=== PATIENT | female | born 1955 | race Caucasian/White ===

== ENCOUNTER 2020-12-06 13:46 | Outpatient (CLI) | payer MEDICARE, MEDICAID ==
[~2020-12-06 13:46] MED LIST: ALBU8HFA IH; APIX5TAB3 PO; ASPI-1071 PO; ATOR20TA66 PO; BUDE10.2 IH; BUPR-72 PO; COR3.125T PO; ESCI-8 PO; FURO20TA4 PO; LEVO112T5 PO; OMEP-50 PO; OXYB10TA30 PO; ZOLP10TA PO
== END 2020-12-06 23:59 | disposition home or self-care (01) ==
LOC: RAD 13:46
DX: K21.9 Gastro-esophageal reflux disease without esophagitis (principal); R13.14 Dysphagia, pharyngoesophageal phase; R49.0 Dysphonia
CPT/HCPCS: 74230

== ENCOUNTER 2020-12-10 15:20 | Emergency (ER) | payer MEDICARE, MEDICAID ==
[~2020-12-10] VITALS: Ht 167.6 cm; Wt 73.2 kg
[2020-12-10 16:07] LABS: BASOPHILS % (AUTO) 0.6 % (0-1); EOSINOPHILS # (AUTO) 0.1 X10'3 (0-0.9); EOSINOPHILS % (AUTO) 2.2 % (0-6); HEMATOCRIT 41.9 % (35.0-45.0); HEMOGLOBIN 13.7 g/dl (12.0-16.0); LYMPHOCYTES % (AUTO) 42.9 % (21-51); MEAN CORPUSCULAR HEMOGLOBIN 31.6 PG (27.0-31.0); MEAN CORPUSCULAR HGB CONC 32.8 g/dL (33.0-36.5); MEAN CORPUSCULAR VOLUME 96.4 FL (78-98); MONOCYTES # (AUTO) 0.5 X10'3 (0-0.9); MONOCYTES % (AUTO) 7.3 % (2-12); NEUTROPHILS # (AUTO) 3.2 X10'3 (1.8-7.7); PLATELET COUNT 360 X10'3 (140-440); RED BLOOD COUNT 4.34 X10'6 (4.20-5.60); RED CELL DISTRIBUTION WIDTH 14.6 % (11.5-14.5); WHITE BLOOD COUNT 6.9 X10'3 (4.5-11.0)
[2020-12-10 16:16] LABS: ALANINE AMINOTRANSFERASE 34 U/L (12-78); ALBUMIN 3.1 G/DL (3.4-5.0); ALBUMIN/GLOBULIN RATIO 0.8 (1.1-1.5); ALKALINE PHOSPHATASE 121 IU/L (46-116); ANION GAP 8 (8-16); ASPARTATE AMINO TRANSFERASE 18 U/L (10-37); BILIRUBIN,TOTAL 0.3 MG/DL (0.1-1.0); BLOOD UREA NITROGEN 17 MG/DL (7-18); BUN/CREATININE RATIO 14.9 (6.6-38.0); CALCIUM 10.5 MG/DL (8.5-10.1); CHLORIDE 108 MMOL/L (99-107); CREATININE 1.14 MG/DL (0.40-0.90); GLUCOSE 101 MG/DL (70-104); POTASSIUM 4.2 MMOL/L (3.5-5.1); SODIUM 143 MMOL/L (135-145); TOTAL PROTEIN 6.8 G/DL (6.4-8.2); eGFR 48 ML/MIN
[2020-12-10 19:06] VITALS: BP 121/70
== END 2020-12-10 19:08 | disposition home or self-care (01) ==
LOC: ER 15:21
DX: R42 Dizziness and giddiness (principal); R11.0 Nausea; I25.10 Atherosclerotic heart disease of native coronary artery without angina pectoris; E78.00 Pure hypercholesterolemia, unspecified; I25.2 Old myocardial infarction; J44.9 Chronic obstructive pulmonary disease, unspecified; G89.29 Other chronic pain; E07.9 Disorder of thyroid, unspecified; Z98.61 Coronary angioplasty status; Z98.890 Other specified postprocedural states; Z98.891 History of uterine scar from previous surgery; Z79.82 Long term (current) use of aspirin; Z79.899 Other long term (current) drug therapy; Z91.018 Allergy to other foods
CPT/HCPCS: 36415; 71045; 80053; 83880; 84484; 85025; 93005; 99285

== ENCOUNTER 2021-02-05 14:59 | Emergency (ER) | payer MEDICARE, MEDICAID ==
[~2021-02-05] VITALS: Ht 167.6 cm; Wt 78.0 kg
[2021-02-05 18:34] VITALS: BP 127/73
== END 2021-02-05 18:37 | disposition home or self-care (01) ==
LOC: ER 15:00
DX: R07.89 Other chest pain (principal); E78.00 Pure hypercholesterolemia, unspecified; I11.0 Hypertensive heart disease with heart failure; J44.9 Chronic obstructive pulmonary disease, unspecified; Z91.018 Allergy to other foods
CPT/HCPCS: 71045; 93005; 99283

== ENCOUNTER 2021-05-07 20:04 | Inpatient (IN) | payer MEDICARE, MEDICAID ==
[~2021-05-07] VITALS: Ht 167.6 cm; Wt 89.1 kg
--- NOTE | 2021-05-07 20:39 | NUR ---
moved pt to room 17
[2021-05-07] MEDS ORDERED: morphine 4 MG/ML inj SYRINge IV ONE (21:05)
[2021-05-07] MEDS ORDERED: ondansetron/PF 4mg/2ml inj IV ONE (21:05)
[2021-05-07 21:09] LABS: BASOPHILS % (AUTO) 0.5 % (0-1); EOSINOPHILS # (AUTO) 0.1 X10'3 (0-0.9); EOSINOPHILS % (AUTO) 1.8 % (0-6); HEMOGLOBIN 13.3 g/dl (12.0-16.0); LYMPHOCYTES # (AUTO) 1.8 X10'3 (1.1-4.8); LYMPHOCYTES % (AUTO) 32.9 % (21-51); MEAN CORPUSCULAR HEMOGLOBIN 30.5 PG (27.0-31.0); MEAN CORPUSCULAR HGB CONC 32.3 g/dL (33.0-36.5); MEAN CORPUSCULAR VOLUME 94.4 FL (78-98); MEAN PLATELET VOLUME 7.8 FL (7.4-10.4); MONOCYTES % (AUTO) 0.7 % (2-12); NEUTROPHILS # (AUTO) 3.4 X10'3 (1.8-7.7); NEUTROPHILS % (AUTO) 64.1 % (42-75); PLATELET COUNT 385 X10'3 (140-440); RED BLOOD COUNT 4.35 X10'6 (4.20-5.60); RED CELL DISTRIBUTION WIDTH 15.2 % (11.5-14.5); WHITE BLOOD COUNT 5.3 X10'3 (4.5-11.0)
[2021-05-07 21:16] LABS: ALANINE AMINOTRANSFERASE 21 U/L (12-78); ALBUMIN 3.3 G/DL (3.4-5.0); ALBUMIN/GLOBULIN RATIO 0.9 (1.1-1.5); ALKALINE PHOSPHATASE 132 IU/L (46-116); ANION GAP 6 (8-16); ASPARTATE AMINO TRANSFERASE 16 U/L (10-37); BILIRUBIN,TOTAL 0.2 MG/DL (0.1-1.0); BLOOD UREA NITROGEN 28 MG/DL (7-18); BUN/CREATININE RATIO 17.2 (6.6-38.0); CALCIUM 10.3 MG/DL (8.5-10.1); CHLORIDE 110 MMOL/L (99-107); CREATININE 1.63 MG/DL (0.40-0.90); GLUCOSE 120 MG/DL (70-104); POTASSIUM 3.6 MMOL/L (3.5-5.1); SODIUM 142 MMOL/L (135-145); TOTAL CARBON DIOXIDE 25.8 MMOL/L (24-32); TOTAL PROTEIN 6.9 G/DL (6.4-8.2); eGFR 31 ML/MIN
[2021-05-07 21:25] LABS: LIPASE 81 U/L (73-393); TROPONIN I < 0.04 NG/ML (0.0-0.05)
[2021-05-08] VITALS (27 sets, daily range): BP systolic 66–161; BP diastolic 32–90
[2021-05-08] MEDS ORDERED: HYDR-3965 PO (00:10)
[2021-05-08 00:17] LABS: CLARITY,URINE SLIGHTLY CLOUDY (Clear); COLOR,URINE YELLOW (Yellow); GLUCOSE, URINE NEGATIVE (Neg); KETONES,URINE NEGATIVE (Neg); LEUKOCYTE ESTERASE ,URINE MODERATE (Neg); NITRITES, URINE POSITIVE (Neg); OCCULT BLOOD,URINE LARGE (Neg); PROTEIN,URINE NEGATIVE (Neg); UROBILINOGEN,URINE 0.2 E.U/dL (0.2-1.0)
[2021-05-08 00:23] LABS: UA COLLECTION TYPE STRAIGHT CATH
[2021-05-08 00:25] LABS: BACTERIA,URINE 2+ /HPF (Neg); MUCUS STRANDS NONE SEEN /LPF (Neg); RBC,URINE 50-100 /HPF (0-2); SQUAMOUS EPITHELIAL CELL,UR NONE SEEN /LPF (FEW)
[2021-05-08] MEDS ORDERED: CefTRIAXone 2gm/D5W 50ml BAG 50 ML IV ONE (00:45)
[2021-05-08] MEDS ORDERED: HYDROcodone/acetaminophen 10/325mg tab PO ONE (01:05)
[2021-05-08] MEDS ORDERED: morphine 10mg/ml inj. IV ONE (01:05)
[2021-05-08] MEDS ORDERED: ONDA4TAB6 PO (01:49)
[2021-05-08] MEDS ORDERED: CEPH-585 PO (01:49)
[2021-05-08] MEDS ORDERED: APIX5TAB3 PO (03:00)
[2021-05-08] MEDS ORDERED: ATOR40TA PO (03:00)
[2021-05-08] MEDS ORDERED: normal saline 1000ML IV soln IV ONE (03:05)
[2021-05-08] MEDS ORDERED: normal saline 1000ML IV soln IVB ONE (03:05)
[2021-05-08] MEDS ORDERED: ondansetron 4mg rapidly disintigrating tab PO PRN (03:15)
[2021-05-08] MEDS ORDERED: diphenhydrAMINE 50 mg/ml inj IV PRN (03:15)
[2021-05-08] MEDS ORDERED: bisacodyl 10mg suppository rectal RC PRN (03:15)
[2021-05-08] MEDS ORDERED: mag hydrox/Alum hydrox/simeth 30ml oral suspension PO PRN (03:15)
[2021-05-08] MEDS ORDERED: HYDROcodone/acetaminophen 10/325mg tab PO PRN (03:15)
[2021-05-08] MEDS ORDERED: acetaminophen 650mg rectal suppository RC PRN (03:15)
[2021-05-08] MEDS ORDERED: morphine 2 MG/ML inj. syringe IV PRN ×2 (03:15)
[2021-05-08] MEDS ORDERED: diphenhydrAMINE 25mg capsule PO PRN (03:15)
[2021-05-08] MEDS ORDERED: HYDROmorphone inj. 0.5 MG/0.5 ML DISP.SYRIN IV PRN (03:15)
[2021-05-08] MEDS ORDERED: acetaminophen 325mg tablet PO PRN ×4 (03:15→06:20)
[2021-05-08] MEDS ORDERED: magnesium hydroxide 30ml (MOM) UD suspension PO PRN ×2 (03:15→06:20)
[2021-05-08] MEDS ORDERED: HYDROcodone/acetaminophen 5mg/325mg tablet PO PRN (03:15)
--- NOTE | 2021-05-08 03:17 | NUR ---
Due to pt having low BP Dr Warren advised to give pt 3 liters of fluid and start sepsis protocol
[2021-05-08] MEDS: ondansetron/PF 4mg/2ml inj IV PRN (03:38)
[2021-05-08 03:44] LABS: PARTIAL THROMBOPLASTIN TIME 25 SECONDS (22-32)
[2021-05-08 03:51] LABS: CREATINE KINASE 105 U/L (26-192); MAGNESIUM 1.6 MG/DL (1.5-2.4); PHOSPHORUS 2.6 MG/DL (2.3-4.5)
--- NOTE | 2021-05-08 04:11 | NUR ---
PT REMAINS HYPOTENSIVE. 2 LTR ADMINISTERED. PT C/O OF HEAVIENESS IN CHEST, 02 SATS 92% ON 5 LTRS O2 SANTI. NOTIFIED.
--- NOTE | 2021-05-08 04:20 | NUR ---
called dr. shankar to let him know about pt color changing more md jose angel also advised of pt current vitals of gr 78 , spo2 92 on 15L nonrebreather and bp of 74/48. dr shankar advised pt needs to finish 3rd liter of fluid and start a drip of dopamine at 5. dr hinds suggested to have pt go get a cta of chest. dr shankar states pt is not stable enough for ct scanner at this time.
[2021-05-08] MEDS ORDERED: NORepinephrine 8mg/ 250ml NS 250 ML IV ONE (04:22)
--- NOTE | 2021-05-08 04:25 | NUR ---
RT at bedside. Pt placed on non-rebreather
--- NOTE | 2021-05-08 04:30 | NUR ---
md at bedside, rt at bedside
--- NOTE | 2021-05-08 04:34 | NUR ---
pt moved to bed 5
[2021-05-08 04:36] LABS: ABG BASE EXCESS -8.5 mmol/L (-2.0-2.0); ABG OXYGEN SATURATION 93.9 % (94-97); ABG PCO2 (T) 46.2 mmHg (32.0-45.0); ABG PO2 (T) 75.5 mmHg (75.0-100.0); ALLEN'S TEST POSITIVE; FCOHb 0.4 % (0.0-3.9); FLOW 15 L/min; FMetHb 0.1 % (0.0-1.5); FO2Hb 93.4 % (94-97); PATIENT TEMPERATURE 36.4; TOTAL HEMOGLOBIN 11.5 G/dl (12.0-16.0)
[2021-05-08] MEDS ORDERED: iohexol 350MG/ML 100ml bottle IV ONE (04:49)
[2021-05-08 04:53] LABS: URINE AMPHETAMINE SCREEN NEGATIVE (Neg); URINE BARBITUATE SCREEN NEGATIVE (Neg); URINE BENZODIAZEPINES SCREEN NEGATIVE (Neg); URINE CANNABINOID SCREEN NEGATIVE (Neg); URINE COCAINE SCREEN NEGATIVE (Neg); URINE METHADONE SCREEN NEGATIVE (Neg); URINE OPIATE SCREEN POSITIVE (Neg); URINE PHENCYCLIDINE SCREEN NEGATIVE (Neg)
[2021-05-08] MEDS ORDERED: FENTANYL-0.9 % NACL/PF 100 ML IV ONE (04:55)
[2021-05-08] MEDS ORDERED: proCHLORperazine 10 MG/2 ml inj IV ONE (04:55)
[2021-05-08] MEDS ORDERED: midazolam 100mg in NS 100ml 100 ML IV ONE ×2 (04:55→05:05)
--- NOTE | 2021-05-08 05:34 | NUR ---
PT CURRENT VITALS HR 98, SPO2 94% ON NRB AT 15 LPM, BP 98/[address] 0[address] BUTLER TO INTUBATE PT DR BUTLER AT BEDSIDE 0537 RT CLEMENTE AND RT JAS KAT AND JAS BRIGHT, JAS DOOLEY TIME OUT: 539 0540 - 20 ETOMIDATE 0541 - 100 ROCURONIUM 0542 - VITALS HR 97, BP 97/49, SPO2 91 RR 21 PT BEING HYPEROXYGENATED WITH BVM BY RT SHEY SPO2 AFTER 94% 0543 - DR BUTLER INTUBATION WITH SIZE 7.5 TUBE, TUBE AT 22 AT THE LIP COLOR CHANGE AUSCULTATED BREATH SOUNDS BILATERALLY VITALS AFTER 0544 - 11
[2021-05-08] MEDS: normal saline 1000ml 1,000 ML IV SCH ×3 (05:42→23:15)
--- NOTE | 2021-05-08 05:57 | NUR ---
DR BUTLER AT BEDSIDE FOR CENTRAL LINE PLACEMENT
[2021-05-08 05:59] LABS: ABG BASE EXCESS -9.4 mmol/L (-2.0-2.0); ABG HCO3 18.3 mmol/L (22.0-26.0); ABG OXYGEN SATURATION 92.3 % (94-97); ABG PCO2 (T) 45.9 mmHg (32.0-45.0); ABG PO2 (T) 68.9 mmHg (75.0-100.0); ALLEN'S TEST POSITIVE; FCOHb 0.3 % (0.0-3.9); FMetHb 0.2 % (0.0-1.5); FO2Hb 91.8 % (94-97); PATIENT TEMPERATURE 36.4; PEEP 5 cm H2O; RESPIRATORY RATE 18 b/min; TIDAL VOLUME 450 mL; TOTAL HEMOGLOBIN 12.1 G/dl (12.0-16.0)
[2021-05-08] MEDS ORDERED: LIDOcaine 2% 10ml TOPICAL JELLY (Urojet) TP ONE (06:20)
--- NOTE | 2021-05-08 06:38 | NUR ---
TELE CONSULT WITH DR ROSARIO AT THIS TIME, LEVOPHED HELD PER MD (SEE IV INFUSION CHART) FOR BP 166/87. FENTANYL DRIP INCREASED TO 50MCG/HR (SEE IV INFUSION CHART).
[2021-05-08] MEDS: buPROPion SR 150mg tablet PO SCH (06:50)
[2021-05-08] MEDS: ESCITALOPRAM OXALATE 5 MG TABLET PO SCH (06:50)
[2021-05-08] MEDS: docusate sod 100mg capsule PO SCH ×2 (06:50→19:47)
[2021-05-08] MEDS ORDERED: rocuronium 10mg/ml inj IV ONE (07:00)
[2021-05-08] MEDS ORDERED: iohexol 300 MG/1 ML 50ml polymer ONE (07:00)
--- NOTE | 2021-05-08 07:08 | NUR ---
Report given to Tamanna MCNAIR OR. All questions and concerns addressed, pat to be picked up for surgery ANNE.
[2021-05-08] MEDS: pantoprazole 40mg Tablet.DR PO SCH (07:16)
[2021-05-08] MEDS: piperacillin/tazo 3.375gm/50ml 50 ML IV SCH ×2 (07:17→15:30)
[2021-05-08] MEDS ORDERED: LIDOcaine 1% (10mg/ml) 2ml vial ONE (07:30)
[2021-05-08] MEDS ORDERED: fentaNYL/PF 50MCG/1 ML 2ML syringe ONE (07:31)
[2021-05-08] MEDS ORDERED: MIDAZolam 1 MG/ML 5ML VIAL ONE (07:31)
--- NOTE | 2021-05-08 07:33 | NUR ---
BEDSIDE REPORT GIVEN TO TRACK LABORERJAS SANTOS AT THIS TIME. TELEPHONE CONSENT OBTAINED FROM MORIAH HICKMAN AT 0730. CONSENT SIGNED, PAT TO OR WITH NO SIGNS OF DISTRESS NOTED.
[2021-05-08] MEDS ORDERED: NORepinephrine 1 mg/ml inj IV ONE (07:55)
[2021-05-08] MEDS: albuterol 2.5 MG/3 ML nebule NEB SCH ×3 (08:00→20:30)
[2021-05-08] MEDS ORDERED: levoTHYROXINE 112mcg tablet PO SCH (08:00)
[2021-05-08] MEDS ORDERED: CefTRIAXone/D5W-Rocephin 1gm 50 ML IV SCH (08:00)
[2021-05-08] MEDS ORDERED: ALBUTEROL IH SCH (08:00)
[2021-05-08] MEDS: budesonide 0.5mg/2ml UD nebule IH SCH ×2 (08:00→20:29)
[2021-05-08 08:02] LABS: CLARITY,URINE CLOUDY (Clear); COLOR,URINE YELLOW (Yellow); GLUCOSE, URINE NEGATIVE (Neg); KETONES,URINE NEGATIVE (Neg); LEUKOCYTE ESTERASE ,URINE MODERATE (Neg); NITRITES, URINE POSITIVE (Neg); OCCULT BLOOD,URINE LARGE (Neg); PH,URINE 5.5 (4.8-8.0); PROTEIN,URINE 30 mg/dl (Neg); UROBILINOGEN,URINE 0.2 E.U/dL (0.2-1.0)
[2021-05-08 08:07] LABS: UA COLLECTION TYPE NON-SPECIFIED
[2021-05-08 08:09] LABS: BACTERIA,URINE 3+ /HPF (Neg); RBC,URINE 50-100 /HPF (0-2); WBC,URINE TNTC /HPF (0-4)
[2021-05-08 08:10] LABS: MUCUS STRANDS NONE SEEN /LPF (Neg); SQUAMOUS EPITHELIAL CELL,UR FEW /LPF (FEW); WBC CLUMPS,URINE FEW /HPF (NEGATIVE)
--- NOTE | 2021-05-08 08:15 | NUR ---
ADMITTED TO PACU FROM OR ACCOMPANIED BY ANESTHESIA. INTIAL PHYSICAL ASSESSMENT DONE AND RECORDED. REPORT RECEIVED FROM ANESTHESIA. PT IS VENTILATED SETTINGS PER ANESTHESIA ABG DRAWN, CHEST XRAY DONE IN OR, RIGHT IJ TRIPLE LUMEN IN PLACE NOT SUTURED. LEFT RADIAL ART LINE AIR ZEROED AND CALIBRATED WITH GOOD WAVE FORM. RESPONDS TO PAINFUL STIMULI ONLY. LEVOPHED AT 0.1, FENTANYL 50 MCG. VERSED 1MG. ATTEMPTS TO WEAN LEVOPHED UNSUCCESSFUL, SO WILL REMAIN ON 0.1MG PER ANESTHESIA.
[2021-05-08] MEDS: levoTHYROXINE 112mcg tablet PO SCH (08:23)
[2021-05-08 08:33] LABS: ABG BASE EXCESS -10.4 mmol/L (-2.0-2.0); ABG HCO3 15.1 mmol/L (22.0-26.0); ABG OXYGEN SATURATION 91.5 % (94-97); ABG PCO2 (T) 32.1 mmHg (32.0-45.0); FCOHb 0.3 % (0.0-3.9); FMetHb 0.2 % (0.0-1.5); PEEP 5 cm H2O; RESPIRATORY RATE 16 b/min; TIDAL VOLUME 650 mL; TOTAL HEMOGLOBIN 11.9 G/dl (12.0-16.0)
[2021-05-08] MEDS: NORepinephrine 8mg/ 250ml NS 250 ML IV SCH ×2 (08:45→19:08)
--- NOTE | 2021-05-08 10:30 | NUR ---
PACU DISCHARGE CRITERIA MET, REPORT GIVEN TO ICU TRANSPORTED WITH JAS PADILLA TO ROOM 2042, STABLE.
[2021-05-08] MEDS ORDERED: MECL-159 PO (11:56)
[2021-05-08] MEDS ORDERED: NITR0.4T48 SL (11:56)
[2021-05-08] MEDS ORDERED: CARV3.122 PO (11:56)
[2021-05-08] MEDS ORDERED: LEVO100T78 PO (11:56)
[2021-05-08] MEDS: dexmedetomidine inj. 400 MCG in normal saline 100ml IV soln 96 ML IV SCH (12:35)
--- NOTE | 2021-05-08 12:38 | NUR ---
Initial: Pt intubated DX R ureteral stone w/ hydronephrosis s/p stone manipulation and stent placement this admit. OG in place w/ MAP 83 this AM. TF recs below in case prolonged intubation using IBW; pending scaled wt this admit. Will continue to monitor for nutrition support needs on vent. Rec: 1. IF TF; Vital AF at 60ml/hr goal; to provide 1440ml volume, 1728 kcals, 1166ml free water, and 108g protein. 2. IF TF; additional water flush 200ml Q4H 3. IF TF; PALB Q /; daily wts 4. routine bowel care 5. upon extubation; advance diet as medically indicated to heart healthy Addendum: 05/08/21 at [address] Amended: Links added.
[2021-05-08 19:23] LABS: ABG HCO3 15.7 mmol/L (22.0-26.0); ABG OXYGEN SATURATION 88.9 % (94-97); ABG PCO2 (T) 46.8 mmHg (32.0-45.0); ABG PO2 (T) 60.8 mmHg (75.0-100.0); FCOHb 0.3 % (0.0-3.9); FLOW 15 L/min; FMetHb 0.4 % (0.0-1.5); FO2Hb 88.3 % (94-97); PATIENT TEMPERATURE 36.9; TOTAL HEMOGLOBIN 13.2 G/dl (12.0-16.0)
--- NOTE | 2021-05-08 19:28 | NUR ---
Called Dr. Haskins with ABG results and he is going to put orders in for Bicarb and Bipap. He said is she tolerated Bipap fine, if not the non-rebreather is fine too.
[2021-05-08] MEDS ORDERED: sodium bicarbonate (8.4%) 1 mEq/ml syringe IV ONE (19:35)
[2021-05-08] MEDS: sodium bicarbonate (8.4%) inj. 150 MEQ in dextrose 5%-water 1,000 ML IV SCH (20:24)
[2021-05-08] MEDS ORDERED: temazepam 15mg capsule PO PRN (21:00)
[2021-05-09] VITALS (24 sets, daily range): BP systolic 60–156; BP diastolic 5–93
[2021-05-09] MEDS: piperacillin/tazo 3.375gm/50ml 50 ML IV SCH ×3 (00:06→16:13)
[2021-05-09] MEDS: NORepinephrine 8mg/ 250ml NS 250 ML IV SCH ×2 (01:07→12:09)
[2021-05-09] MEDS: dexmedetomidine inj. 400 MCG in normal saline 100ml IV soln 96 ML IV SCH ×4 (01:32→22:03)
[2021-05-09 02:23] LABS: BASOPHILS % (AUTO) 0.1 % (0-1); EOSINOPHILS # (AUTO) 0.1 X10'3 (0-0.9); EOSINOPHILS % (AUTO) 0.2 % (0-6); HEMOGLOBIN 11.7 g/dl (12.0-16.0); LYMPHOCYTES # (AUTO) 2.5 X10'3 (1.1-4.8); LYMPHOCYTES % (AUTO) 7.6 % (21-51); MEAN CORPUSCULAR HEMOGLOBIN 30.9 PG (27.0-31.0); MEAN CORPUSCULAR HGB CONC 33.5 g/dL (33.0-36.5); MEAN CORPUSCULAR VOLUME 92.3 FL (78-98); MEAN PLATELET VOLUME 8.1 FL (7.4-10.4); MONOCYTES # (AUTO) 0.9 X10'3 (0-0.9); MONOCYTES % (AUTO) 2.6 % (2-12); NEUTROPHILS # (AUTO) 29.9 X10'3 (1.8-7.7); NEUTROPHILS % (AUTO) 89.5 % (42-75); PLATELET COUNT 285 X10'3 (140-440); RED BLOOD COUNT 3.79 X10'6 (4.20-5.60); RED CELL DISTRIBUTION WIDTH 15.7 % (11.5-14.5)
[2021-05-09 02:34] LABS: WHITE BLOOD COUNT 33.4 X10'3 (4.5-11.0)
[2021-05-09 02:39] LABS: ALANINE AMINOTRANSFERASE 31 U/L (12-78); ALBUMIN 2.4 G/DL (3.4-5.0); ALBUMIN/GLOBULIN RATIO 0.7 (1.1-1.5); ALKALINE PHOSPHATASE 91 IU/L (46-116); ANION GAP 10 (8-16); ASPARTATE AMINO TRANSFERASE 24 U/L (10-37); BILIRUBIN,TOTAL 0.6 MG/DL (0.1-1.0); BLOOD UREA NITROGEN 24 MG/DL (7-18); BUN/CREATININE RATIO 16.2 (6.6-38.0); CALCIUM 8.7 MG/DL (8.5-10.1); CHLORIDE 115 MMOL/L (99-107); CHOL/HDL RATIO 2.1 (0.00-4.99); CHOLESTEROL 93 MG/DL (0-200); CREATININE 1.48 MG/DL (0.40-0.90); GLUCOSE 137 MG/DL (70-104); HDL CHOLESTEROL 44 MG/DL (35-60); LDL CHOLESTEROL 30 MG/DL (50-100); POTASSIUM 3.8 MMOL/L (3.5-5.1); SODIUM 147 MMOL/L (135-145); TOTAL CARBON DIOXIDE 22.3 MMOL/L (24-32); TOTAL PROTEIN 5.8 G/DL (6.4-8.2); TRIGLYCERIDES 60 MG/DL (20-135); eGFR 35 ML/MIN
[2021-05-09 02:51] LABS: ABG BASE EXCESS -5.3 mmol/L (-2.0-2.0); ABG HCO3 19.3 mmol/L (22.0-26.0); ABG OXYGEN SATURATION 98.7 % (94-97); ABG PCO2 (T) 34.6 mmHg (32.0-45.0); ABG PO2 (T) 147.3 mmHg (75.0-100.0); FCOHb 0.3 % (0.0-3.9); FMetHb 0.2 % (0.0-1.5); FO2Hb 98.2 % (94-97); PATIENT TEMPERATURE 37.2; TOTAL HEMOGLOBIN 12.2 G/dl (12.0-16.0)
[2021-05-09] MEDS: albuterol 2.5 MG/3 ML nebule NEB SCH ×4 (03:01→19:44)
[2021-05-09 03:24] LABS: TOTAL CELLS COUNTED 100
[2021-05-09 03:25] LABS: BANDS% (MANUAL) 16 % (0-10); LYMPHOCYTES % (MANUAL) 10 % (21-51); METAMYLEOCYTES% (MANUAL) 17 % (0-0); MONOCYTES % (MANUAL) 3 % (2-12); NEUTROPHILS % (MANUAL) 54 % (42-75); PLATELET ESTIMATE NORMAL
[2021-05-09] MEDS: morphine 2 MG/ML inj. syringe IV PRN (05:23)
--- NOTE | 2021-05-09 06:10 | NUR ---
Problems reprioritized. Patient report given, questions answered & plan of care reviewed with JAS Barger.
[2021-05-09] MEDS ORDERED: VANCOMYCIN 1GM/200ML IVPB 200 ML IV ONE ×2 (06:30→08:00)
--- NOTE | 2021-05-09 06:30 | NUR ---
Patient in room ICU 2042. I have received report from Raquel MARK and had the opportunity to ask questions and assume patient care.
[2021-05-09] MEDS: ESCITALOPRAM OXALATE 5 MG TABLET PO SCH (07:06)
[2021-05-09] MEDS: docusate sod 100mg capsule PO SCH ×2 (07:06→19:31)
[2021-05-09] MEDS: levoTHYROXINE 112mcg tablet PO SCH (07:06)
[2021-05-09] MEDS: pantoprazole 40mg Tablet.DR PO SCH (07:06)
[2021-05-09] MEDS: buPROPion SR 150mg tablet PO SCH (07:06)
[2021-05-09] MEDS: heparin, porcine 5000 units/ml vial SQ SCH ×2 (07:07→19:31)
[2021-05-09] MEDS: sodium bicarbonate (8.4%) inj. 150 MEQ in dextrose 5%-water 1,000 ML IV SCH (07:09)
[2021-05-09] MEDS: normal saline 1000ml 1,000 ML IV SCH ×3 (07:10→17:35)
[2021-05-09] MEDS: budesonide 0.5mg/2ml UD nebule IH SCH ×2 (08:06→19:44)
[2021-05-09] MEDS ORDERED: OLANZapine **IM** 10 mg inj. IM ONE (08:20)
[2021-05-09] MEDS ORDERED: vancomycin/NS 1 GM ADD-VANTAGE 250 ML IV ONE (08:35)
[2021-05-09 10:34] LABS: ABG BASE EXCESS -2.6 mmol/L (-2.0-2.0); ABG HCO3 25.5 mmol/L (22.0-26.0); ABG OXYGEN SATURATION 87.5 % (94-97); ABG PCO2 (T) 60.6 mmHg (32.0-45.0); ABG PO2 (T) 56.2 mmHg (75.0-100.0); ALLEN'S TEST POSITIVE; FCOHb 0.3 % (0.0-3.9); FMetHb 0.2 % (0.0-1.5); FO2Hb 87.1 % (94-97); PATIENT TEMPERATURE 37.4; RESPIRATORY RATE 14 b/min; TIDAL VOLUME 526 mL; TOTAL HEMOGLOBIN 12.5 G/dl (12.0-16.0)
[2021-05-09] MEDS ORDERED: normal saline 1000ML IV soln IVB ONE (11:25)
--- NOTE | 2021-05-09 17:45 | NUR ---
Patient was very agitated at the beginning of the shift despite Precedex infusing @ 1.4 mcg/kg/hr. Refused to keep BiPAP on. Dyspneic with exertion. Patient medicated with Zyprexa then became obtunded with sats in mid 80's on 100% NRB mask. Patient placed back on BIPAP and ABG done. Noted central line leaking at the site. Blood return from distal port. CXR done for placement which shows central line in place but high. Proximal. port capped off. Additional 1000 mL NS bolus given. Able to wean Levophed down through the shift. Urine remains genoveva with occ blood tinge.
--- NOTE | 2021-05-09 18:21 | NUR ---
Problems reprioritized. Patient report given, questions answered & plan of care reviewed with Otilia MARK.
--- NOTE | 2021-05-09 20:18 | NUR ---
Pt is having visual hallucinations. Pt waved nurse aide into room and then stated, "the delivery jo is right out there" while pointing out the second floor window. Pt reassured and reoriented.
[2021-05-10] VITALS (22 sets, daily range): BP systolic 105–175; BP diastolic 50–118
[2021-05-10] MEDS: piperacillin/tazo 3.375gm/50ml 50 ML IV SCH ×4 (00:37→23:13)
[2021-05-10] MEDS: normal saline 1000ml 1,000 ML IV SCH (00:38)
[2021-05-10] MEDS: albuterol 2.5 MG/3 ML nebule NEB SCH ×4 (03:30→21:02)
[2021-05-10 03:49] LABS: BASOPHILS % (AUTO) 0.1 % (0-1); EOSINOPHILS # (AUTO) 0.4 X10'3 (0-0.9); EOSINOPHILS % (AUTO) 1.3 % (0-6); HEMATOCRIT 32.4 % (35.0-45.0); HEMOGLOBIN 10.3 g/dl (12.0-16.0); LYMPHOCYTES # (AUTO) 2.6 X10'3 (1.1-4.8); LYMPHOCYTES % (AUTO) 9.6 % (21-51); MEAN CORPUSCULAR HGB CONC 31.8 g/dL (33.0-36.5); MEAN CORPUSCULAR VOLUME 94.4 FL (78-98); MEAN PLATELET VOLUME 8.4 FL (7.4-10.4); MONOCYTES # (AUTO) 0.8 X10'3 (0-0.9); MONOCYTES % (AUTO) 2.8 % (2-12); NEUTROPHILS # (AUTO) 23.8 X10'3 (1.8-7.7); NEUTROPHILS % (AUTO) 86.2 % (42-75); PLATELET COUNT 192 X10'3 (140-440); RED BLOOD COUNT 3.43 X10'6 (4.20-5.60)
[2021-05-10] MEDS: dexmedetomidine inj. 400 MCG in normal saline 100ml IV soln 96 ML IV SCH ×4 (03:49→20:32)
[2021-05-10 03:57] LABS: WHITE BLOOD COUNT 27.5 X10'3 (4.5-11.0)
[2021-05-10 04:12] LABS: ALANINE AMINOTRANSFERASE 29 U/L (12-78); ALBUMIN/GLOBULIN RATIO 0.6 (1.1-1.5); ALKALINE PHOSPHATASE 129 IU/L (46-116); ANION GAP 9 (8-16); ASPARTATE AMINO TRANSFERASE 22 U/L (10-37); BILIRUBIN,TOTAL 0.5 MG/DL (0.1-1.0); BLOOD UREA NITROGEN 23 MG/DL (7-18); BUN/CREATININE RATIO 20.7 (6.6-38.0); CALCIUM 8.4 MG/DL (8.5-10.1); CHLORIDE 115 MMOL/L (99-107); CREATININE 1.11 MG/DL (0.40-0.90); GLUCOSE 90 MG/DL (70-104); MAGNESIUM 1.6 MG/DL (1.5-2.4); PHOSPHORUS 2.4 MG/DL (2.3-4.5); POTASSIUM 3.6 MMOL/L (3.5-5.1); SODIUM 148 MMOL/L (135-145); TOTAL CARBON DIOXIDE 24.4 MMOL/L (24-32); TOTAL PROTEIN 5.3 G/DL (6.4-8.2); eGFR 49 ML/MIN
[2021-05-10 04:45] LABS: BANDS% (MANUAL) 36 % (0-10); LYMPHOCYTES % (MANUAL) 9 % (21-51); MONOCYTES % (MANUAL) 1 % (2-12); NEUTROPHILS % (MANUAL) 51 % (42-75); TOTAL CELLS COUNTED 100
[2021-05-10 04:46] LABS: METAMYLEOCYTES% (MANUAL) 3 % (0-0); PLATELET ESTIMATE NORMAL
--- NOTE | 2021-05-10 05:13 | NUR ---
Pt was trailed for 45 mins on 6 LPM NC. Pt observed to be distressed with SOB. Pt being placed back on BiPAP. Sitter present in room due to pt's impulsiveness to pull off BiPAP and pull at lines.
--- NOTE | 2021-05-10 06:30 | NUR ---
Problems reprioritized. Patient report given, questions answered & plan of care reviewed with JAS Wilson.
[2021-05-10] MEDS: levoTHYROXINE 100mcg tablet PO SCH (07:00)
[2021-05-10] MEDS ORDERED: furosemide 20 MG/2 ML vial IV ONE (07:40)
[2021-05-10] MEDS ORDERED: vancomycin/NS 1 GM ADD-VANTAGE 250 ML IV SCH (08:00)
[2021-05-10] MEDS: pantoprazole 40mg Tablet.DR PO SCH (08:10)
[2021-05-10] MEDS: ESCITALOPRAM OXALATE 5 MG TABLET PO SCH (08:10)
[2021-05-10] MEDS: budesonide 0.5mg/2ml UD nebule IH SCH ×2 (08:11→21:02)
[2021-05-10] MEDS: buPROPion SR 150mg tablet PO SCH (09:12)
[2021-05-10] MEDS: docusate sod 100mg capsule PO SCH ×2 (09:13→19:03)
[2021-05-10] MEDS: heparin, porcine 5000 units/ml vial SQ SCH ×2 (09:13→20:06)
[2021-05-10] MEDS: NORepinephrine 8mg/ 250ml NS 250 ML IV SCH (12:33)
[2021-05-11] VITALS (23 sets, daily range): BP systolic 135–172; BP diastolic 60–113
[2021-05-11] MEDS: dexmedetomidine inj. 400 MCG in normal saline 100ml IV soln 96 ML IV SCH ×6 (00:38→21:40)
[2021-05-11] MEDS: albuterol 2.5 MG/3 ML nebule NEB SCH ×4 (02:40→21:07)
[2021-05-11] MEDS: NORepinephrine 8mg/ 250ml NS 250 ML IV SCH ×2 (04:50→21:40)
[2021-05-11 05:55] LABS: BASOPHILS % (AUTO) 0.1 % (0-1); EOSINOPHILS % (AUTO) 0 % (0-6); HEMATOCRIT 35.1 % (35.0-45.0); HEMOGLOBIN 11.4 g/dl (12.0-16.0); LYMPHOCYTES # (AUTO) 1.7 X10'3 (1.1-4.8); LYMPHOCYTES % (AUTO) 5.4 % (21-51); MEAN CORPUSCULAR HGB CONC 32.4 g/dL (33.0-36.5); MEAN CORPUSCULAR VOLUME 92.9 FL (78-98); MEAN PLATELET VOLUME 8.6 FL (7.4-10.4); MONOCYTES # (AUTO) 0.7 X10'3 (0-0.9); MONOCYTES % (AUTO) 2.4 % (2-12); NEUTROPHILS # (AUTO) 28.2 X10'3 (1.8-7.7); NEUTROPHILS % (AUTO) 92.1 % (42-75); PLATELET COUNT 215 X10'3 (140-440); RED BLOOD COUNT 3.78 X10'6 (4.20-5.60); RED CELL DISTRIBUTION WIDTH 15.6 % (11.5-14.5)
[2021-05-11 06:00] LABS: WHITE BLOOD COUNT 30.7 X10'3 (4.5-11.0)
[2021-05-11 06:15] LABS: ALANINE AMINOTRANSFERASE 28 U/L (12-78); ALBUMIN 2.3 G/DL (3.4-5.0); ALBUMIN/GLOBULIN RATIO 0.6 (1.1-1.5); ALKALINE PHOSPHATASE 110 IU/L (46-116); ANION GAP 14 (8-16); ASPARTATE AMINO TRANSFERASE 25 U/L (10-37); BILIRUBIN,TOTAL 0.7 MG/DL (0.1-1.0); BLOOD UREA NITROGEN 27 MG/DL (7-18); BUN/CREATININE RATIO 23.5 (6.6-38.0); CALCIUM 9.5 MG/DL (8.5-10.1); CHLORIDE 114 MMOL/L (99-107); CREATININE 1.15 MG/DL (0.40-0.90); GLUCOSE 115 MG/DL (70-104); MAGNESIUM 1.7 MG/DL (1.5-2.4); PHOSPHORUS 1.9 MG/DL (2.3-4.5); POTASSIUM 3.2 MMOL/L (3.5-5.1); SODIUM 149 MMOL/L (135-145); TOTAL CARBON DIOXIDE 21.3 MMOL/L (24-32); TOTAL PROTEIN 5.9 G/DL (6.4-8.2); eGFR 47 ML/MIN
--- NOTE | 2021-05-11 06:19 | NUR ---
Patient in room ICU 2042. I have received report from JAS Kaiser and had the opportunity to ask questions and assume patient care.
--- NOTE | 2021-05-11 06:19 | NUR ---
Problems reprioritized. Patient report given, questions answered & plan of care reviewed with Suzette RN at bedside.
[2021-05-11 06:35] LABS: PLATELET ESTIMATE NORMAL; TOTAL CELLS COUNTED 100
[2021-05-11 06:36] LABS: ANISOCYTOSIS 1+; BURR CELLS 1+
[2021-05-11] MEDS: piperacillin/tazo 3.375gm/50ml 50 ML IV SCH ×3 (07:26→23:52)
[2021-05-11] MEDS: levoTHYROXINE 100mcg tablet PO SCH (07:26)
[2021-05-11] MEDS: pantoprazole 40mg Tablet.DR PO SCH (07:27)
[2021-05-11] MEDS: ESCITALOPRAM OXALATE 5 MG TABLET PO SCH (07:27)
[2021-05-11] MEDS: buPROPion SR 150mg tablet PO SCH (07:27)
[2021-05-11] MEDS: heparin, porcine 5000 units/ml vial SQ SCH (07:28)
[2021-05-11] MEDS: docusate sod 100mg capsule PO SCH ×2 (07:28→19:10)
[2021-05-11] MEDS: budesonide 0.5mg/2ml UD nebule IH SCH ×2 (07:29→21:07)
[2021-05-11] MEDS ORDERED: potassium Cl 20 mEq SR tablet PO STA (10:44)
[2021-05-11] MEDS: morphine 2 MG/ML inj. syringe IV PRN (11:41)
[2021-05-11] MEDS ORDERED: vancomycin/NS 1 GM ADD-VANTAGE 250 ML X 1 DOSE IV SCH (12:00)
--- NOTE | 2021-05-11 12:14 | NUR ---
Reassessment: Pt remains NPO w/ ALOC on bipap in restraints and sitter present during rounds. MAIKEL d/w regarding corpak for nutrition needs. Pt to remain NPO while on bipap pending respiratory treatment today to see if can maintain on high flow; if can remain off bipap then NG for feeds per electrical prospecting operator at rounds. TF recs below. LBM 05/07 receiving routine colace; MD aware of constipation status. Receiving electrolyte replacement per protocol. Will continue to monitor for nutrition support needs. Rec: 1. IF TF; Vital AF at 60ml/hr goal; to provide 1440ml volume, 1728 kcals, 1166ml free water, and 108g protein. 2. IF TF; additional water flush 200ml Q4H 3. IF TF; PALB Q /; daily wts 4. routine bowel care; 4 days constipation Addendum: 05/11/21 at [address] Amended: Links added.
--- NOTE | 2021-05-11 18:13 | NUR ---
Problems reprioritized. Patient report given, questions answered & plan of care reviewed with JAS Kaiser.
--- NOTE | 2021-05-11 18:15 | NUR ---
Patient in room ICU 2042. I have received report from Suzette MARK at bedside and had the opportunity to ask questions and assume patient care.
[2021-05-11] MEDS: morphine 4 MG/ML inj SYRINge IV PRN (23:08)
[2021-05-12] VITALS (23 sets, daily range): BP systolic 130–172; BP diastolic 81–111
[2021-05-12] MEDS: dexmedetomidine inj. 400 MCG in normal saline 100ml IV soln 96 ML IV SCH ×4 (01:54→22:46)
[2021-05-12] MEDS: albuterol 2.5 MG/3 ML nebule NEB SCH ×4 (03:02→20:43)
--- NOTE | 2021-05-12 06:17 | NUR ---
Problems reprioritized. Patient report given, questions answered & plan of care reviewed with Suzette RN at bedside.
--- NOTE | 2021-05-12 06:17 | NUR ---
Patient in room ICU 2042. I have received report from JAS Kaiser and had the opportunity to ask questions and assume patient care.
[2021-05-12 06:21] LABS: BASOPHILS % (AUTO) 0.1 % (0-1); EOSINOPHILS % (AUTO) 0.2 % (0-6); HEMATOCRIT 35.4 % (35.0-45.0); HEMOGLOBIN 11.6 g/dl (12.0-16.0); LYMPHOCYTES # (AUTO) 1.7 X10'3 (1.1-4.8); LYMPHOCYTES % (AUTO) 9.8 % (21-51); MEAN CORPUSCULAR HEMOGLOBIN 30.4 PG (27.0-31.0); MEAN CORPUSCULAR HGB CONC 32.7 g/dL (33.0-36.5); MONOCYTES # (AUTO) 0.7 X10'3 (0-0.9); MONOCYTES % (AUTO) 4.1 % (2-12); NEUTROPHILS # (AUTO) 14.6 X10'3 (1.8-7.7); NEUTROPHILS % (AUTO) 85.8 % (42-75); PLATELET COUNT 217 X10'3 (140-440); RED BLOOD COUNT 3.81 X10'6 (4.20-5.60); RED CELL DISTRIBUTION WIDTH 15.6 % (11.5-14.5)
[2021-05-12 06:29] LABS: ALANINE AMINOTRANSFERASE 24 U/L (12-78); ALBUMIN 2.3 G/DL (3.4-5.0); ALBUMIN/GLOBULIN RATIO 0.7 (1.1-1.5); ALKALINE PHOSPHATASE 100 IU/L (46-116); ANION GAP 15 (8-16); ASPARTATE AMINO TRANSFERASE 23 U/L (10-37); BILIRUBIN,TOTAL 0.8 MG/DL (0.1-1.0); BLOOD UREA NITROGEN 32 MG/DL (7-18); CHLORIDE 116 MMOL/L (99-107); GLUCOSE 117 MG/DL (70-104); PHOSPHORUS 1.9 MG/DL (2.3-4.5); POTASSIUM 3.3 MMOL/L (3.5-5.1); SODIUM 150 MMOL/L (135-145); TOTAL CARBON DIOXIDE 19.4 MMOL/L (24-32); TOTAL PROTEIN 5.7 G/DL (6.4-8.2); eGFR 55 ML/MIN
[2021-05-12] MEDS: levoTHYROXINE 100mcg tablet PO SCH (07:00)
[2021-05-12 07:26] LABS: ANISOCYTOSIS 1+; PLATELET ESTIMATE NORMAL; POIKILOCYTOSIS FEW; POLYCHROMASIA FEW; TOTAL CELLS COUNTED 100
[2021-05-12] MEDS ORDERED: VANCOMYCIN LEVEL IV ONE (07:30)
[2021-05-12] MEDS ORDERED: potassium phosphate inj 30 MMOL in normal saline 500ml IV soln 500 ML IV ONE (08:00)
[2021-05-12] MEDS: budesonide 0.5mg/2ml UD nebule IH SCH ×2 (08:01→20:43)
[2021-05-12] MEDS: piperacillin/tazo 3.375gm/50ml 50 ML IV SCH ×2 (08:38→16:04)
[2021-05-12] MEDS: docusate sod 100mg capsule PO SCH ×2 (08:38→20:00)
[2021-05-12] MEDS: buPROPion SR 150mg tablet PO SCH (08:38)
[2021-05-12] MEDS: pantoprazole 40mg Tablet.DR PO SCH (08:39)
[2021-05-12] MEDS: dextrose 5%-water 1,000 ML IV SCH ×2 (08:40→21:15)
[2021-05-12] MEDS: ESCITALOPRAM OXALATE 5 MG TABLET PO SCH (08:40)
[2021-05-12] MEDS: morphine 4 MG/ML inj SYRINge IV PRN ×2 (08:57→22:08)
[2021-05-12] MEDS: ipratropium/albuterol 3ml nebule NEB PRN (13:02)
[2021-05-12] MEDS: LORazepam 2 mg/ml vial IV PRN (13:09)
[2021-05-12] MEDS ORDERED: potassium phosphate inj 15 MMOL in normal saline 250ml IV soln 250 ML IV ONE (14:00)
[2021-05-12] MEDS: NORepinephrine 8mg/ 250ml NS 250 ML IV SCH (16:21)
[2021-05-13] VITALS (24 sets, daily range): BP systolic 121–181; BP diastolic 71–108
[2021-05-13] MEDS: piperacillin/tazo 3.375gm/50ml 50 ML IV SCH ×3 (00:36→17:11)
[2021-05-13] MEDS: LORazepam 2 mg/ml vial IV PRN (02:32)
[2021-05-13] MEDS: dexmedetomidine inj. 400 MCG in normal saline 100ml IV soln 96 ML IV SCH ×3 (02:51→21:59)
[2021-05-13] MEDS: albuterol 2.5 MG/3 ML nebule NEB SCH ×4 (02:55→19:56)
[2021-05-13] MEDS ORDERED: magnesium Cl slow-release 64mg tablet PO PRN (06:50)
[2021-05-13] MEDS ORDERED: magnesium 4gm in 100ml NS 100 ML IV PRN (06:50)
[2021-05-13] MEDS ORDERED: potassium Cl 20 mEq SR tablet PO PRN (06:50)
[2021-05-13] MEDS ORDERED: potassium Cl 40MEQ/1/2NS 520ml 520 ML IV PRN (06:50)
[2021-05-13] MEDS ORDERED: magnesium 2GM in 50ml NS 50 ML IV PRN (06:50)
[2021-05-13] MEDS: buPROPion SR 150mg tablet PO SCH (07:15)
[2021-05-13] MEDS: levoTHYROXINE 100mcg tablet PO SCH (07:15)
[2021-05-13] MEDS: pantoprazole 40mg Tablet.DR PO SCH (07:15)
[2021-05-13] MEDS: heparin, porcine 5000 units/ml vial SQ SCH ×2 (07:16→19:41)
[2021-05-13] MEDS: ESCITALOPRAM OXALATE 5 MG TABLET PO SCH (07:16)
[2021-05-13] MEDS: budesonide 0.5mg/2ml UD nebule IH SCH ×2 (07:34→19:56)
[2021-05-13 07:50] LABS: BASOPHILS % (AUTO) 0.2 % (0-1); EOSINOPHILS % (AUTO) 0.4 % (0-6); HEMATOCRIT 34.3 % (35.0-45.0); HEMOGLOBIN 11.3 g/dl (12.0-16.0); LYMPHOCYTES % (AUTO) 18.2 % (21-51); MEAN CORPUSCULAR HEMOGLOBIN 30.9 PG (27.0-31.0); MEAN CORPUSCULAR VOLUME 93.6 FL (78-98); MEAN PLATELET VOLUME 9.2 FL (7.4-10.4); MONOCYTES # (AUTO) 0.9 X10'3 (0-0.9); MONOCYTES % (AUTO) 8.1 % (2-12); NEUTROPHILS % (AUTO) 73.1 % (42-75); PLATELET COUNT 223 X10'3 (140-440); RED BLOOD COUNT 3.67 X10'6 (4.20-5.60); RED CELL DISTRIBUTION WIDTH 15.4 % (11.5-14.5); WHITE BLOOD COUNT 10.9 X10'3 (4.5-11.0)
[2021-05-13] MEDS: K and/or MAG REPLACEMENT MC SCH (08:00)
[2021-05-13] MEDS: docusate sod 100mg capsule PO SCH ×2 (08:00→19:47)
[2021-05-13 08:23] LABS: ALANINE AMINOTRANSFERASE 24 U/L (12-78); ALBUMIN 2.3 G/DL (3.4-5.0); ALBUMIN/GLOBULIN RATIO 0.7 (1.1-1.5); ALKALINE PHOSPHATASE 101 IU/L (46-116); ANION GAP 11 (8-16); ASPARTATE AMINO TRANSFERASE 16 U/L (10-37); BILIRUBIN,TOTAL 0.7 MG/DL (0.1-1.0); BLOOD UREA NITROGEN 27 MG/DL (7-18); BUN/CREATININE RATIO 28.7 (6.6-38.0); CHLORIDE 117 MMOL/L (99-107); CREATININE 0.94 MG/DL (0.40-0.90); GLUCOSE 137 MG/DL (70-104); MAGNESIUM 1.9 MG/DL (1.5-2.4); PHOSPHORUS 2.6 MG/DL (2.3-4.5); POTASSIUM 3.6 MMOL/L (3.5-5.1); SODIUM 151 MMOL/L (135-145); TOTAL CARBON DIOXIDE 23.5 MMOL/L (24-32); TOTAL PROTEIN 5.7 G/DL (6.4-8.2); eGFR 59 ML/MIN
[2021-05-13] MEDS: NORepinephrine 8mg/ 250ml NS 250 ML IV SCH (09:37)
[2021-05-13 09:38] LABS: TOTAL CELLS COUNTED 100
[2021-05-13 09:39] LABS: PLATELET ESTIMATE NORMAL; POLYCHROMASIA FEW
[2021-05-13 09:40] LABS: ACANTHOCYTES FEW; BURR CELLS FEW; ELLIPTOCYTES FEW; TEAR DROP CELLS FEW
[2021-05-13] MEDS: dextrose 5%-water 1,000 ML IV SCH (10:20)
--- NOTE | 2021-05-13 18:30 | NUR ---
Patient in room ICU 2042. I have received report from Lori MARK and had the opportunity to ask questions and assume patient care. Addendum: 05/13/21 at 2023 by Komal Chandler RN Amended: Links added.
[2021-05-13] MEDS: morphine 4 MG/ML inj SYRINge IV PRN (19:41)
--- NOTE | 2021-05-13 21:07 | NUR ---
Patient's called for update. Questions answered. Explained that RN is unable to give lab results over the phone. Requesting a call from the day shift automation technologist tomorrow if possible. Will relay to oncoming shift.
[2021-05-14] VITALS (24 sets, daily range): BP systolic 97–150; BP diastolic 55–85
[2021-05-14] MEDS: piperacillin/tazo 3.375gm/50ml 50 ML IV SCH ×4 (01:18→23:49)
[2021-05-14] MEDS: dextrose 5%-water 1,000 ML IV SCH ×2 (02:03→15:21)
[2021-05-14] MEDS: NORepinephrine 8mg/ 250ml NS 250 ML IV SCH ×2 (02:53→20:09)
[2021-05-14] MEDS: albuterol 2.5 MG/3 ML nebule NEB SCH ×4 (03:09→20:28)
--- NOTE | 2021-05-14 04:35 | NUR ---
Dr. Moreira updated on patient's status. Orders received.
[2021-05-14 04:53] LABS: ABG HCO3 22.3 mmol/L (22.0-26.0); ABG OXYGEN SATURATION 93.7 % (94-97); ABG PCO2 (T) 30.8 mmHg (32.0-45.0); ABG PO2 (T) 62.1 mmHg (75.0-100.0); FCOHb 0.3 % (0.0-3.9); FMetHb 0.2 % (0.0-1.5); FO2Hb 93.2 % (94-97); PATIENT TEMPERATURE 35.7; TOTAL HEMOGLOBIN 11.3 G/dl (12.0-16.0)
[2021-05-14] MEDS: dexmedetomidine inj. 400 MCG in normal saline 100ml IV soln 96 ML IV SCH ×2 (04:59→16:48)
--- NOTE | 2021-05-14 06:26 | NUR ---
Problems reprioritized. Patient report given, questions answered & plan of care reviewed with Matilde MARK .
--- NOTE | 2021-05-14 07:02 | NUR ---
Patient in room ICU 2042. I have received report from Komal MARK and had the opportunity to ask questions and assume patient care. Addendum: 05/14/21 at 0703 by Matilde Angel RN Amended: Links added.
[2021-05-14 07:37] LABS: BASOPHILS % (AUTO) 0.1 % (0-1); EOSINOPHILS # (AUTO) 0.2 X10'3 (0-0.9); EOSINOPHILS % (AUTO) 1.6 % (0-6); HEMATOCRIT 33.6 % (35.0-45.0); LYMPHOCYTES # (AUTO) 2.3 X10'3 (1.1-4.8); LYMPHOCYTES % (AUTO) 23.4 % (21-51); MAGNESIUM 1.9 MG/DL (1.5-2.4); MEAN CORPUSCULAR HEMOGLOBIN 30.7 PG (27.0-31.0); MEAN CORPUSCULAR HGB CONC 32.8 g/dL (33.0-36.5); MEAN CORPUSCULAR VOLUME 93.6 FL (78-98); MONOCYTES # (AUTO) 0.7 X10'3 (0-0.9); MONOCYTES % (AUTO) 7.4 % (2-12); NEUTROPHILS # (AUTO) 6.5 X10'3 (1.8-7.7); NEUTROPHILS % (AUTO) 67.5 % (42-75); PLATELET COUNT 209 X10'3 (140-440); POTASSIUM 3.7 MMOL/L (3.5-5.1); RED BLOOD COUNT 3.59 X10'6 (4.20-5.60); RED CELL DISTRIBUTION WIDTH 15.7 % (11.5-14.5); WHITE BLOOD COUNT 9.7 X10'3 (4.5-11.0)
[2021-05-14] MEDS: budesonide 0.5mg/2ml UD nebule IH SCH ×2 (07:41→20:28)
[2021-05-14] MEDS: ESCITALOPRAM OXALATE 5 MG TABLET PO SCH (07:43)
[2021-05-14 07:44] LABS: ALANINE AMINOTRANSFERASE 19 U/L (12-78); ALBUMIN/GLOBULIN RATIO 0.6 (1.1-1.5); ALKALINE PHOSPHATASE 89 IU/L (46-116); ANION GAP 9 (8-16); ASPARTATE AMINO TRANSFERASE 8 U/L (10-37); BILIRUBIN,TOTAL 0.6 MG/DL (0.1-1.0); BLOOD UREA NITROGEN 21 MG/DL (7-18); CHLORIDE 114 MMOL/L (99-107); CREATININE 0.84 MG/DL (0.40-0.90); GLUCOSE 123 MG/DL (70-104); PHOSPHORUS 2.1 MG/DL (2.3-4.5); POTASSIUM 3.7 MMOL/L (3.5-5.1); SODIUM 146 MMOL/L (135-145); TOTAL CARBON DIOXIDE 22.6 MMOL/L (24-32); TOTAL PROTEIN 5.3 G/DL (6.4-8.2); eGFR 68 ML/MIN
[2021-05-14] MEDS: heparin, porcine 5000 units/ml vial SQ SCH ×2 (07:44→20:11)
[2021-05-14] MEDS: buPROPion SR 150mg tablet PO SCH (07:44)
[2021-05-14] MEDS: levoTHYROXINE 100mcg tablet PO SCH (07:44)
[2021-05-14] MEDS: docusate sod 100mg capsule PO SCH ×2 (07:44→20:11)
[2021-05-14] MEDS: pantoprazole 40mg Tablet.DR PO SCH (07:44)
[2021-05-14] MEDS: K and/or MAG REPLACEMENT MC SCH (07:49)
[2021-05-14 08:22] LABS: PLATELET ESTIMATE NORMAL; TOTAL CELLS COUNTED 100
--- NOTE | 2021-05-14 08:56 | NUR ---
Patient's Shade called for update. Update provided. States he would like the doctor to call him. Will let MD know.
--- NOTE | 2021-05-14 09:22 | NUR ---
Dr. Mason aware that pt. has received no nutrition since admit, Precedex off. Ordered high flow tow. RT aware.
--- NOTE | 2021-05-14 09:47 | NUR ---
Warm blankets provided and room temp increased for temp 35.8.
--- NOTE | 2021-05-14 10:00 | NUR ---
ROUNDS NOTE: Start CL diet (sips) Place PICC line DC Ativan Give Toradol for pain Continuous Bladder Irrigation
[2021-05-14] MEDS ORDERED: ketorolac trometh. 30mg/ml inj. IM SCH (10:30)
[2021-05-14] MEDS: ketorolac tromethamine 15mg/ml inj. IV SCH ×3 (11:00→23:49)
[2021-05-14] MEDS ORDERED: VANCOMYCIN LEVEL IV ONE (11:30)
--- NOTE | 2021-05-14 11:39 | NUR ---
Current [facility] miya dc'd to place 3-way holliday to allow for CBI per Dr. Mason. CBI infusing. and sister asking to speak with doctor. RN called who is unable to come speak with family but will call them via phone today. PICC to be placed today.
[2021-05-14] MEDS ORDERED: ketorolac trometh. 30mg/ml inj. IV SCH (14:00)
[2021-05-14] MEDS: morphine 2 MG/ML inj. syringe IV PRN ×2 (15:50→20:52)
[2021-05-14 16:50] LABS: ABG BASE EXCESS -0.3 mmol/L (-2.0-2.0); ABG HCO3 22.4 mmol/L (22.0-26.0); ABG OXYGEN SATURATION 93.4 % (94-97); ABG PCO2 (T) 30.4 mmHg (32.0-45.0); ABG PO2 (T) 62.3 mmHg (75.0-100.0); ALLEN'S TEST POSITIVE; FCOHb 0.3 % (0.0-3.9); FLOW 40 L/min; FMetHb 0.1 % (0.0-1.5)
--- NOTE | 2021-05-14 17:01 | NUR ---
PICC RN here to place PICC.
--- NOTE | 2021-05-14 17:53 | NUR ---
PICC placed to RUE. IV lines changed and placed to PICC.
--- NOTE | 2021-05-14 18:12 | NUR ---
Problems reprioritized. Patient report given, questions answered & plan of care reviewed with Komal MARK.
--- NOTE | 2021-05-14 18:30 | NUR ---
Patient in room ICU 2042. I have received report from Matilde MARK and had the opportunity to ask questions and assume patient care. Addendum: 05/14/21 at 1910 by Komal Chandler RN Amended: Links added.
[2021-05-15] VITALS (22 sets, daily range): BP systolic 116–208; BP diastolic 69–108
[2021-05-15] MEDS: ipratropium/albuterol 3ml nebule NEB PRN (01:27)
[2021-05-15] MEDS: albuterol 2.5 MG/3 ML nebule NEB SCH ×4 (02:00→21:09)
[2021-05-15] MEDS: dextrose 5%-water 1,000 ML IV SCH ×3 (02:35→19:22)
--- NOTE | 2021-05-15 03:32 | NUR ---
Patient appears to be sleeping at this time. Maintaining sats and tolerating being on HiFlo. CBI running without issue.
[2021-05-15 03:42] LABS: BASOPHILS % (AUTO) 0.2 % (0-1); EOSINOPHILS # (AUTO) 0.5 X10'3 (0-0.9); EOSINOPHILS % (AUTO) 4.7 % (0-6); HEMATOCRIT 34.4 % (35.0-45.0); HEMOGLOBIN 11.4 g/dl (12.0-16.0); LYMPHOCYTES # (AUTO) 3.5 X10'3 (1.1-4.8); LYMPHOCYTES % (AUTO) 34.9 % (21-51); MEAN CORPUSCULAR HEMOGLOBIN 30.5 PG (27.0-31.0); MEAN CORPUSCULAR HGB CONC 33.1 g/dL (33.0-36.5); MEAN CORPUSCULAR VOLUME 92.2 FL (78-98); MEAN PLATELET VOLUME 8.9 FL (7.4-10.4); MONOCYTES # (AUTO) 0.5 X10'3 (0-0.9); MONOCYTES % (AUTO) 5.3 % (2-12); NEUTROPHILS # (AUTO) 5.5 X10'3 (1.8-7.7); NEUTROPHILS % (AUTO) 54.9 % (42-75); PLATELET COUNT 230 X10'3 (140-440); RED BLOOD COUNT 3.73 X10'6 (4.20-5.60); RED CELL DISTRIBUTION WIDTH 15.6 % (11.5-14.5); WHITE BLOOD COUNT 10.1 X10'3 (4.5-11.0)
[2021-05-15] MEDS: morphine 2 MG/ML inj. syringe IV PRN (03:57)
[2021-05-15 04:11] LABS: ALANINE AMINOTRANSFERASE 28 U/L (12-78); ALBUMIN 1.9 G/DL (3.4-5.0); ALBUMIN/GLOBULIN RATIO 0.6 (1.1-1.5); ALKALINE PHOSPHATASE 70 IU/L (46-116); ANION GAP 8 (8-16); ASPARTATE AMINO TRANSFERASE 17 U/L (10-37); BILIRUBIN,TOTAL 0.5 MG/DL (0.1-1.0); BLOOD UREA NITROGEN 15 MG/DL (7-18); BUN/CREATININE RATIO 18.3 (6.6-38.0); CALCIUM 8.8 MG/DL (8.5-10.1); CHLORIDE 112 MMOL/L (99-107); CREATININE 0.82 MG/DL (0.40-0.90); GLUCOSE 103 MG/DL (70-104); MAGNESIUM 1.7 MG/DL (1.5-2.4); POTASSIUM 3.2 MMOL/L (3.5-5.1); SODIUM 145 MMOL/L (135-145); TOTAL CARBON DIOXIDE 25.3 MMOL/L (24-32); TOTAL PROTEIN 5.1 G/DL (6.4-8.2); eGFR 70 ML/MIN
[2021-05-15] MEDS: ketorolac tromethamine 15mg/ml inj. IV SCH ×4 (05:18→23:33)
[2021-05-15] MEDS: dexmedetomidine inj. 400 MCG in normal saline 100ml IV soln 96 ML IV SCH ×2 (05:56→21:41)
--- NOTE | 2021-05-15 06:20 | NUR ---
Dr. Mcallister updated on patient's condition during rounds. Orders received. Problems reprioritized. Patient report given, questions answered & plan of care reviewed with Matilde MARK.
[2021-05-15] MEDS ORDERED: potassium Cl 40MEQ/250ML bag 270 ML IV PRN (06:35)
[2021-05-15] MEDS: K and/or MAG REPLACEMENT MC SCH (06:42)
[2021-05-15] MEDS: levoTHYROXINE 100mcg tablet PO SCH (06:55)
[2021-05-15] MEDS: piperacillin/tazo 3.375gm/50ml 50 ML IV SCH ×2 (06:56→15:32)
[2021-05-15] MEDS: pantoprazole 40mg Tablet.DR PO SCH (06:56)
[2021-05-15] MEDS: ALPRAZolam 0.25mg tablet PO PRN ×2 (06:56→15:00)
[2021-05-15] MEDS: ESCITALOPRAM OXALATE 5 MG TABLET PO SCH (06:58)
[2021-05-15] MEDS: heparin, porcine 5000 units/ml vial SQ SCH (06:58)
[2021-05-15] MEDS: buPROPion SR 150mg tablet PO SCH (06:58)
[2021-05-15] MEDS: docusate sod 100mg capsule PO SCH ×2 (06:58→19:18)
[2021-05-15] MEDS: budesonide 0.5mg/2ml UD nebule IH SCH ×2 (07:56→21:09)
[2021-05-15] MEDS: lactose-reduced food (Ensure Enlive) - 237ml bottle PO SCH ×3 (08:00→18:00)
[2021-05-15] MEDS ORDERED: magnesium citrate 296ml oral solution PO ONE (10:25)
[2021-05-15 11:24] LABS: ABG BASE EXCESS -1.9 mmol/L (-2.0-2.0); ABG HCO3 20.7 mmol/L (22.0-26.0); ABG OXYGEN SATURATION 92.6 % (94-97); ABG PO2 (T) 59.5 mmHg (75.0-100.0); ALLEN'S TEST POSITIVE; FCOHb 0.3 % (0.0-3.9); FLOW 40 L/min; FMetHb 0.2 % (0.0-1.5); FO2Hb 92.1 % (94-97); PATIENT TEMPERATURE 36.6; TOTAL HEMOGLOBIN 13.5 G/dl (12.0-16.0)
--- NOTE | 2021-05-15 11:43 | NUR ---
F/u 05/15: Pt moved to high flow from bipap advanced to clear liquid diet yesterday PO 0% last night per EMR. RN reports this AM pt requesting Ensures to drink w/ meals but not tolerating other PO. Ensure Clears TIDWM started today per . MAIKEL d/w 7 days no nutrition this admit; IF poor PO persists would benefit from supplemental feeds via corpak to meet needs. MD aware; will encourage PO meals and ONS intake and monitor for further PO hx at this time. Noted LBM 05/07 PHYSICS DEPARTMENT CHAIR 8 days constipation; to start additional bowel care today per air reduction equipment operator at rounds. Given current restrictive diet pt will not meet needs even w/ 100% PO meals and ONS. Given 7 days no nutrition intake and mild weakness pt meets minimum non-severe malnutrition criteria; MD notified. Will continue to monitor for PO trends and acceptance. Rec: 1. continue clear liquid diet w/ ensure clear TIDWM per MD; encourage PO 2. advance diet as medically indicated to regular; consider NUTRITION SERVICES AIDE BSS given respiratory status 3. IF TF; Vital AF at 60ml/hr goal; to provide 1440ml volume, 1728 kcals, 1166ml free water, and 108g protein. 4. IF TF; additional water flush 200ml Q4H 5. routine bowel care; 8 days constipation Addendum: 05/15/21 at [address] Amended: Links added.
--- NOTE | 2021-05-15 12:13 | NUR ---
Dr. Lopez in to talk with patient's family (sister and [id number]). Pt. has transfer orders to PCU. Charge aware.
[2021-05-15] MEDS: NUT.TX.IMPAIRED DIGEST FXN (Ensure Clear) 237 ML PO SCH ×2 (13:09→18:00)
[2021-05-15] MEDS: NORepinephrine 8mg/ 250ml NS 250 ML IV SCH (13:25)
--- NOTE | 2021-05-15 15:14 | NUR ---
Pt. has transfer to [facility] orders.
--- NOTE | 2021-05-15 16:11 | NUR ---
Pt. to go to 5250T. RN called to give report, accepting RN will call back.
--- NOTE | 2021-05-15 16:45 | NUR ---
Patient in room ICU 2042. I have received report from jaycee scherer and had the opportunity to ask questions and assume patient care.
--- NOTE | 2021-05-15 17:00 | NUR ---
received pt into room 3018a, oriented to surroundings, pt c/o back pain 05/01, medicated with 15 mg toradol iv.BP 218/ 108, to 188/98, moniter shows runs of bijimeny, 2 runs of 10-13 beat pvcs, multiple pvcs, notified of above , no reply , mg=1.7, 2 gr mag hung iv, pt states good relief of pain, noc shift TL aware of above
--- NOTE | 2021-05-15 17:00 | NUR ---
Pt. transferred to [facility] Floor 3018A via bed with all belongings in stable condition after giving telephone report to Denita Lacey RN.
--- NOTE | 2021-05-15 18:15 | NUR ---
Problems reprioritized. Patient report given, questions answered & plan of care reviewed with jaycee maddox.
--- NOTE | 2021-05-15 18:16 | NUR ---
Patient in room PCU 3018. I have received report from Denita MARK at bedside and had the opportunity to ask questions and assume patient care.
[2021-05-15] MEDS: morphine 4 MG/ML inj SYRINge IV PRN (19:19)
[2021-05-15] MEDS: ondansetron/PF 4mg/2ml inj IV PRN (19:28)
[2021-05-16] MEDS: piperacillin/tazo 3.375gm/50ml 50 ML IV SCH ×4 (00:22→23:11)
[2021-05-16 02:00] VITALS: BP 122/40
[2021-05-16] MEDS: albuterol 2.5 MG/3 ML nebule NEB SCH ×4 (03:15→20:23)
[2021-05-16] MEDS: ketorolac tromethamine 15mg/ml inj. IV SCH ×4 (04:17→22:05)
[2021-05-16 06:00] VITALS: BP 113/68
[2021-05-16 06:06] LABS: MAGNESIUM 2.3 MG/DL (1.5-2.4); POTASSIUM 3.4 MMOL/L (3.5-5.1)
--- NOTE | 2021-05-16 06:32 | NUR ---
Problems reprioritized. Patient report given, questions answered & plan of care reviewed with Shon MARK at bedside.
--- NOTE | 2021-05-16 06:55 | NUR ---
Patient in room PCU 3018. I have received report from Awilda and had the opportunity to ask questions and assume patient care.
[2021-05-16] MEDS: NUT.TX.IMPAIRED DIGEST FXN (Ensure Clear) 237 ML PO SCH ×3 (08:00→17:35)
[2021-05-16] MEDS: budesonide 0.5mg/2ml UD nebule IH SCH ×2 (08:00→20:23)
[2021-05-16] MEDS: lactose-reduced food (Ensure Enlive) - 237ml bottle PO SCH ×3 (08:00→17:35)
[2021-05-16] MEDS: buPROPion SR 150mg tablet PO SCH (08:10)
[2021-05-16] MEDS: docusate sod 100mg capsule PO SCH ×2 (08:10→19:33)
[2021-05-16] MEDS: pantoprazole 40mg Tablet.DR PO SCH (08:10)
[2021-05-16] MEDS: levoTHYROXINE 100mcg tablet PO SCH (08:10)
[2021-05-16] MEDS: ESCITALOPRAM OXALATE 5 MG TABLET PO SCH (08:10)
[2021-05-16] MEDS: dextrose 5%-water 1,000 ML IV SCH (08:19)
[2021-05-16 11:00] VITALS: BP 131/68
--- NOTE | 2021-05-16 11:12 | NUR ---
0800 SVN TRIAGED. THERAPIST NOT AVAILAble
--- NOTE | 2021-05-16 11:36 | NUR ---
Dr Wilks called at [phone] to ask if holliday catheter is still indicated and to notify about need for irrigation last night. No answer. Message left.
[2021-05-16 15:00] VITALS: BP 113/68
[2021-05-16] MEDS: potassium Cl 20 mEq SR tablet PO PRN ×2 (15:09→16:46)
[2021-05-16 18:00] VITALS: BP 139/84
--- NOTE | 2021-05-16 18:25 | NUR ---
Patient in room PCU 3018. I have received report from Shon MARK at bedside and had the opportunity to ask questions and assume patient care.
[2021-05-16] MEDS: heparin, porcine 5000 units/ml vial SQ SCH (19:33)
--- NOTE | 2021-05-16 19:40 | NUR ---
Problems reprioritized. Patient report given, questions answered & plan of care reviewed with shift mechanic nurse.
[2021-05-16] MEDS: morphine 4 MG/ML inj SYRINge IV PRN (21:58)
[2021-05-16 22:00] VITALS: BP 118/64
[2021-05-16] MEDS: ondansetron/PF 4mg/2ml inj IV PRN (22:05)
[2021-05-17] MEDS: dextrose 5%-water 1,000 ML IV SCH ×2 (00:02→21:15)
[2021-05-17] MEDS ORDERED: iohexol 350MG/ML 100ml bottle IV ONE (00:33)
[2021-05-17 02:00] VITALS: BP 111/63
[2021-05-17] MEDS ORDERED: heparin 10,000 units/1 ML INJ IV ONE (02:00)
[2021-05-17] MEDS ORDERED: heparin 10,000 units/1 ML INJ IV PRN ×2 (02:00→03:10)
[2021-05-17] MEDS: albuterol 2.5 MG/3 ML nebule NEB SCH ×4 (02:00→21:10)
[2021-05-17] MEDS: heparin 25,000 UNIT/250ml bag 250 ML IV SCH ×3 (02:57→23:30)
[2021-05-17 04:17] LABS: CLARITY,URINE SLIGHTLY CLOUDY (Clear); COLOR,URINE YELLOW (Yellow); GLUCOSE, URINE NEGATIVE (Neg); KETONES,URINE NEGATIVE (Neg); LEUKOCYTE ESTERASE ,URINE SMALL (Neg); NITRITES, URINE NEGATIVE (Neg); OCCULT BLOOD,URINE LARGE (Neg); PH,URINE 5.5 (4.8-8.0); PROTEIN,URINE TRACE mg/dl (Neg); UROBILINOGEN,URINE 0.2 E.U/dL (0.2-1.0)
[2021-05-17 04:27] LABS: UA COLLECTION TYPE VOIDED
[2021-05-17 04:30] LABS: BACTERIA,URINE NONE SEEN /HPF (Neg); RBC,URINE TNTC /HPF (0-2); SQUAMOUS EPITHELIAL CELL,UR NONE SEEN /LPF (FEW); WBC,URINE 0-4 /HPF (0-4)
[2021-05-17] MEDS: ketorolac tromethamine 15mg/ml inj. IV SCH ×4 (04:56→23:18)
[2021-05-17 05:54] LABS: BASOPHILS % (AUTO) 0.3 % (0-1); EOSINOPHILS # (AUTO) 0.4 X10'3 (0-0.9); HEMATOCRIT 37.6 % (35.0-45.0); HEMOGLOBIN 12.2 g/dl (12.0-16.0); LYMPHOCYTES # (AUTO) 3.1 X10'3 (1.1-4.8); LYMPHOCYTES % (AUTO) 22.2 % (21-51); MEAN CORPUSCULAR HEMOGLOBIN 30.5 PG (27.0-31.0); MEAN CORPUSCULAR HGB CONC 32.5 g/dL (33.0-36.5); MEAN CORPUSCULAR VOLUME 94.1 FL (78-98); MONOCYTES # (AUTO) 0.7 X10'3 (0-0.9); NEUTROPHILS # (AUTO) 9.8 X10'3 (1.8-7.7); NEUTROPHILS % (AUTO) 69.5 % (42-75); PLATELET COUNT 229 X10'3 (140-440); RED CELL DISTRIBUTION WIDTH 16.2 % (11.5-14.5); WHITE BLOOD COUNT 14.1 X10'3 (4.5-11.0)
[2021-05-17 06:00] VITALS: BP 114/71
[2021-05-17 06:04] LABS: MAGNESIUM 2.1 MG/DL (1.5-2.4)
--- NOTE | 2021-05-17 06:21 | NUR ---
Problems reprioritized. Patient report given, questions answered & plan of care reviewed with Shon MARK at bedside.
[2021-05-17] MEDS ORDERED: levoTHYROXINE 100mcg tablet PO SCH (08:00)
[2021-05-17] MEDS: budesonide 0.5mg/2ml UD nebule IH SCH ×2 (08:24→21:10)
[2021-05-17] MEDS: ESCITALOPRAM OXALATE 5 MG TABLET PO SCH (08:28)
[2021-05-17] MEDS: docusate sod 100mg capsule PO SCH ×2 (08:28→20:00)
[2021-05-17] MEDS: levoTHYROXINE 100mcg tablet PO SCH (08:28)
[2021-05-17] MEDS: buPROPion SR 150mg tablet PO SCH (08:29)
[2021-05-17] MEDS: pantoprazole 40mg Tablet.DR PO SCH (08:29)
[2021-05-17] MEDS: NUT.TX.IMPAIRED DIGEST FXN (Ensure Clear) 237 ML PO SCH ×3 (08:29→17:51)
[2021-05-17] MEDS: piperacillin/tazo 3.375gm/50ml 50 ML IV SCH ×3 (08:29→23:18)
[2021-05-17] MEDS: lactose-reduced food (Ensure Enlive) - 237ml bottle PO SCH ×3 (08:29→17:51)
[2021-05-17 11:00] VITALS: BP 131/74
--- NOTE | 2021-05-17 14:24 | NUR ---
PAGER ID: [phone] MESSAGE: RE: [id number] Shaista. Pt c/o BUE edema +2 and BLE edema as well. Are we able to d/c the D5W @75 running? she is eating and drinking again. Thank you.
[2021-05-17 15:00] VITALS: BP 119/72
[2021-05-17 18:00] VITALS: BP 118/70
--- NOTE | 2021-05-17 18:15 | NUR ---
D5W PER REPORT BY MD RAFAEL TANG RN STATED IT IS OKAY TO DISCONTINUE IV FLUIDS. WILL CONTINUE TO MONITOR.
--- NOTE | 2021-05-17 18:23 | NUR ---
Problems reprioritized. Patient report given, questions answered & plan of care reviewed with Tayla.
--- NOTE | 2021-05-17 18:30 | NUR ---
Patient in room PCU 3018. I have received report from CLYDE MARK and had the opportunity to ask questions and assume patient care.
--- NOTE | 2021-05-17 19:49 | NUR ---
PAGER ID: [phone] MESSAGE: [phone] MELITON HICKMAN: JUST LETTING YOU KNOW THAT PATIENT CANT BE DISCHARGED TONIGHT TO [facility] WITH HEPARIN DRIP, MAKES THEM OUT OF RATIO. THANKS. DUANE MARK [phone]
[2021-05-17 22:00] VITALS: BP 127/79
[2021-05-18 02:00] VITALS: BP 112/64
[2021-05-18] MEDS: albuterol 2.5 MG/3 ML nebule NEB SCH ×2 (03:23→08:14)
[2021-05-18 03:49] LABS: ALANINE AMINOTRANSFERASE 20 U/L (12-78); ALBUMIN 1.9 G/DL (3.4-5.0); ALBUMIN/GLOBULIN RATIO 0.5 (1.1-1.5); ALKALINE PHOSPHATASE 90 IU/L (46-116); ANION GAP 5 (8-16); ASPARTATE AMINO TRANSFERASE 18 U/L (10-37); BILIRUBIN,TOTAL 0.3 MG/DL (0.1-1.0); BLOOD UREA NITROGEN 8 MG/DL (7-18); BUN/CREATININE RATIO 8.8 (6.6-38.0); CALCIUM 9.5 MG/DL (8.5-10.1); CHLORIDE 113 MMOL/L (99-107); CREATININE 0.91 MG/DL (0.40-0.90); GLUCOSE 88 MG/DL (70-104); MAGNESIUM 1.7 MG/DL (1.5-2.4); PHOSPHORUS 3.1 MG/DL (2.3-4.5); POTASSIUM 3.5 MMOL/L (3.5-5.1); SODIUM 149 MMOL/L (135-145); TOTAL CARBON DIOXIDE 30.9 MMOL/L (24-32); eGFR 62 ML/MIN
[2021-05-18] MEDS: ketorolac tromethamine 15mg/ml inj. IV SCH ×2 (04:20→10:26)
[2021-05-18] MEDS: ondansetron/PF 4mg/2ml inj IV PRN (04:21)
[2021-05-18 04:39] LABS: BASOPHILS % (AUTO) 0.2 % (0-1); EOSINOPHILS # (AUTO) 0.5 X10'3 (0-0.9); EOSINOPHILS % (AUTO) 3.4 % (0-6); HEMOGLOBIN 11.7 g/dl (12.0-16.0); LYMPHOCYTES # (AUTO) 3.1 X10'3 (1.1-4.8); LYMPHOCYTES % (AUTO) 20.7 % (21-51); MEAN CORPUSCULAR HEMOGLOBIN 29.9 PG (27.0-31.0); MEAN CORPUSCULAR HGB CONC 31.5 g/dL (33.0-36.5); MEAN CORPUSCULAR VOLUME 94.7 FL (78-98); MEAN PLATELET VOLUME 9.1 FL (7.4-10.4); MONOCYTES # (AUTO) 0.8 X10'3 (0-0.9); MONOCYTES % (AUTO) 5.5 % (2-12); NEUTROPHILS # (AUTO) 10.4 X10'3 (1.8-7.7); NEUTROPHILS % (AUTO) 70.2 % (42-75); PLATELET COUNT 281 X10'3 (140-440); RED CELL DISTRIBUTION WIDTH 16.3 % (11.5-14.5); WHITE BLOOD COUNT 14.8 X10'3 (4.5-11.0)
--- NOTE | 2021-05-18 06:42 | NUR ---
Problems reprioritized. Patient report given, questions answered & plan of care reviewed with DARREN MARK.
--- NOTE | 2021-05-18 06:51 | NUR ---
Patient in room PCU 3018. I have received report from JAS Black and had the opportunity to ask questions and assume patient care.
[2021-05-18] MEDS: lactose-reduced food (Ensure Enlive) - 237ml bottle PO SCH (08:00)
[2021-05-18] MEDS: docusate sod 100mg capsule PO SCH (08:00)
[2021-05-18] MEDS: NUT.TX.IMPAIRED DIGEST FXN (Ensure Clear) 237 ML PO SCH (08:00)
[2021-05-18] MEDS: budesonide 0.5mg/2ml UD nebule IH SCH (08:14)
[2021-05-18] MEDS: levoTHYROXINE 100mcg tablet PO SCH (08:16)
[2021-05-18] MEDS: buPROPion SR 150mg tablet PO SCH (08:17)
[2021-05-18] MEDS: pantoprazole 40mg Tablet.DR PO SCH (08:17)
[2021-05-18] MEDS: piperacillin/tazo 3.375gm/50ml 50 ML IV SCH (08:18)
[2021-05-18] MEDS: ESCITALOPRAM OXALATE 5 MG TABLET PO SCH (08:18)
[2021-05-18] MEDS ORDERED: enoxaparin 100mg/ml syringe SUBCUT ONE (09:40)
--- NOTE | 2021-05-18 12:19 | NUR ---
F/u 05/18: Pt advanced to heart healthy diet starting 05/16 at lunch PO ~50% avg solid meals past 1.5 days improving from prior poor intake of clear liquids mostly 0%. MAIKEL d/w RN ONS recs as both ensure clear and ensure enlive in EMR; RN reports pt does not like ensure clears and would prefer more common flavors such as chocolate etc. Since diet advanced can send vanilla/chocolate ensure enlive TIDWM starting WL; dietary notified of flavor preferences. Currently partially meeting needs. Will monitor for ONS acceptance. LBM 05/17 x3 following prior 8 days constipation. Serum Na 149 elevate majority of admit though likely impacted be essentially no nutrition 7 days prior to advancement to solid meals. Will continue to monitor for additional protein/kcal needs this admit. Rec: 1. advance diet as medically indicated to regular; encourage PO 2. Chocolate/vanilla Ensure Enlive TIDWM; encourage PO 3. routine bowel care; prior 8 days constipation resolved 05/17 4. weekly wts Addendum: 05/18/21 at [address] Amended: Links added.
[2021-05-18] MEDS ORDERED: enoxaparin 30mg/0.3ml syringe SUBCUT SCH (20:00)
[2021-05-18] MEDS ORDERED: enoxaparin 60mg/0.6ml syringe SUBCUT SCH (20:00)
[2021-05-18] MEDS ORDERED: enoxaparin 100mg/ml syringe SUBCUT SCH (20:00)
== END 2021-05-18 13:51 | DRG 853 ==
LOC: ER 20:04 → UNDOADMIN 05-08 03:13 → ED HOLD 05-08 03:13 → ICU 2S 05-08 10:59 → PCU 3S 05-15 17:15
PROVIDERS: ADMIT Family Medicine; ATTEND Surgery
PROC: 0BH17EZ Insertion of Endotracheal Airway into Trachea, Via Natural or Artificial Opening (ICD-10-PCS; 2021-05-07)
PROC: 5A1935Z Respiratory Ventilation, Less than 24 Consecutive Hours (ICD-10-PCS; 2021-05-07)
PROC: 02HV33Z Insertion of Infusion Device into Superior Vena Cava, Percutaneous Approach (ICD-10-PCS; 2021-05-07)
PROC: BT1D1ZZ Fluoroscopy of Right Kidney, Ureter and Bladder using Low Osmolar Contrast (ICD-10-PCS; 2021-05-08)
PROC: 5A09357 Assistance with Respiratory Ventilation, Less than 24 Consecutive Hours, Continuous Positive Airway Pressure (ICD-10-PCS; 2021-05-08)
PROC: 0D9670Z Drainage of Stomach with Drainage Device, Via Natural or Artificial Opening (ICD-10-PCS; 2021-05-08)
PROC: B32T1ZZ Computerized Tomography (CT Scan) of Left Pulmonary Artery using Low Osmolar Contrast (ICD-10-PCS; 2021-05-08)
PROC: B3201ZZ Computerized Tomography (CT Scan) of Thoracic Aorta using Low Osmolar Contrast (ICD-10-PCS; 2021-05-08)
PROC: B32S1ZZ Computerized Tomography (CT Scan) of Right Pulmonary Artery using Low Osmolar Contrast (ICD-10-PCS; 2021-05-08)
PROC: BW211ZZ Computerized Tomography (CT Scan) of Abdomen and Pelvis using Low Osmolar Contrast (ICD-10-PCS; 2021-05-08)
PROC: 03HY32Z Insertion of Monitoring Device into Upper Artery, Percutaneous Approach (ICD-10-PCS; 2021-05-08)
PROC: 0T768DZ Dilation of Right Ureter with Intraluminal Device, Via Natural or Artificial Opening Endoscopic (ICD-10-PCS; principal; 2021-05-08 07:35)
PROC: 5A09357 Assistance with Respiratory Ventilation, Less than 24 Consecutive Hours, Continuous Positive Airway Pressure (ICD-10-PCS; 2021-05-09)
PROC: 5A09457 Assistance with Respiratory Ventilation, 24-96 Consecutive Hours, Continuous Positive Airway Pressure (ICD-10-PCS; 2021-05-10)
PROC: 5A09357 Assistance with Respiratory Ventilation, Less than 24 Consecutive Hours, Continuous Positive Airway Pressure (ICD-10-PCS; 2021-05-13)
PROC: 5A0935A Assistance with Respiratory Ventilation, Less than 24 Consecutive Hours, High Flow/Velocity Cannula (ICD-10-PCS; 2021-05-13)
PROC: 5A0945A Assistance with Respiratory Ventilation, 24-96 Consecutive Hours, High Flow/Velocity Cannula (ICD-10-PCS; 2021-05-14)
PROC: 02HV33Z Insertion of Infusion Device into Superior Vena Cava, Percutaneous Approach (ICD-10-PCS; 2021-05-14)
PROC: B548ZZA Ultrasonography of Superior Vena Cava, Guidance (ICD-10-PCS; 2021-05-14)
PROC: B32T1ZZ Computerized Tomography (CT Scan) of Left Pulmonary Artery using Low Osmolar Contrast (ICD-10-PCS; 2021-05-17)
PROC: B3201ZZ Computerized Tomography (CT Scan) of Thoracic Aorta using Low Osmolar Contrast (ICD-10-PCS; 2021-05-17)
PROC: B32S1ZZ Computerized Tomography (CT Scan) of Right Pulmonary Artery using Low Osmolar Contrast (ICD-10-PCS; 2021-05-17)
DX: A41.9 Sepsis, unspecified organism (principal); J96.21 Acute and chronic respiratory failure with hypoxia; J18.9 Pneumonia, unspecified organism; R65.21 Severe sepsis with septic shock; J96.22 Acute and chronic respiratory failure with hypercapnia; I26.99 Other pulmonary embolism without acute cor pulmonale; N13.6 Pyonephrosis; I50.32 Chronic diastolic (congestive) heart failure; N17.9 Acute kidney failure, unspecified; J44.0 Chronic obstructive pulmonary disease with (acute) lower respiratory infection; J98.11 Atelectasis; E87.0 Hyperosmolality and hypernatremia; B96.20 Unspecified Escherichia coli [E. coli] as the cause of diseases classified elsewhere; E03.9 Hypothyroidism, unspecified; E78.00 Pure hypercholesterolemia, unspecified; E78.5 Hyperlipidemia, unspecified; E86.1 Hypovolemia; G89.29 Other chronic pain; Z20.822 Contact with and (suspected) exposure to COVID-19; R00.1 Bradycardia, unspecified; K59.00 Constipation, unspecified; E87.8 Other disorders of electrolyte and fluid balance, not elsewhere classified; F17.210 Nicotine dependence, cigarettes, uncomplicated; I25.10 Atherosclerotic heart disease of native coronary artery without angina pectoris; M47.9 Spondylosis, unspecified; N18.9 Chronic kidney disease, unspecified; Z78.1 Physical restraint status; I25.2 Old myocardial infarction; Z79.890 Hormone replacement therapy; Z86.711 Personal history of pulmonary embolism; Z86.718 Personal history of other venous thrombosis and embolism; Z87.442 Personal history of urinary calculi; Z95.1 Presence of aortocoronary bypass graft; Z95.5 Presence of coronary angioplasty implant and graft; Z99.81 Dependence on supplemental oxygen; Z91.018 Allergy to other foods; Z79.899 Other long term (current) drug therapy
CPT/HCPCS: 31500; 36415; 36573; 36600; 71045; 71275; 74176; 74177; 76000; 76770; 80053; 80061; 80305; 81001; 82550; 82803; 82948; 83036; 83605; 83690; 83735; 83880; 84100; 84132; 84145; 84443; 84484; 85007; 85018; 85025; 85610; 85730; 87040; 87077; 87081; 87088; 87186; 87635; 93005; 94002; 94640; 94660; 94667; 94760; 96372; 96374; 96375; 97110; 97161; 97530; 99291; A4618; C1758; C1769; C2617; G0378; J0696; J0780; J1644; J1650; J1885; J1940; J2001; J2060; J2250; J2270; J2405; J2543; J3010; J3370; J3475; J3480; J3490; J7030; J7040; J7050; J7070; J7626; Q0163; Q9967

== ENCOUNTER 2022-11-03 15:19 | Emergency (ER) | payer MEDICARE, MEDICAID ==
[~2022-11-03] VITALS: Ht 167.6 cm; Wt 80.0 kg
[~2022-11-03 15:19] MED LIST changes: -ALBU8HFA IH; -ASPI-1071 PO; +ASPI-500 PO; -ATOR20TA66 PO; +ATOR40TA PO; -BUDE10.2 IH; +BUPR-114 PO; -BUPR-72 PO; +CEFD300C3 PO; -COR3.125T PO; +DEXA2TAB PO; +FLO0.1T PO; -FURO20TA4 PO; +LEVO100T78 PO; -LEVO112T5 PO; -OMEP-50 PO; +OMEP20CA16 PO; -ZOLP10TA PO
[2022-11-03 15:24] VITALS: BP 118/76
[2022-11-03] MEDS ORDERED: HYDR-3965 PO (18:25)
[2022-11-03] MEDS ORDERED: HYDROcodone/acetaminophen 5mg/325mg tablet PO ONE (18:25)
== END 2022-11-03 18:35 | disposition home or self-care (01) ==
LOC: ER 15:20
DX: S93.401A Sprain of unspecified ligament of right ankle, initial encounter (principal); E78.00 Pure hypercholesterolemia, unspecified; J44.9 Chronic obstructive pulmonary disease, unspecified; G89.29 Other chronic pain; Z91.018 Allergy to other foods; X58.XXXA Exposure to other specified factors, initial encounter; Y93.89 Activity, other specified; Y92.89 Other specified places as the place of occurrence of the external cause; Y99.8 Other external cause status
CPT/HCPCS: 29515; 73610; 99283

== ENCOUNTER 2023-04-03 13:40 | Emergency (ER) | payer MEDICARE, MEDICAID ==
[~2023-04-03] VITALS: Ht 167.6 cm; Wt 78.2 kg
[2023-04-03 13:59] LABS: BASOPHILS # (AUTO) 0.1 X10'3 (0-0.2); BASOPHILS % (AUTO) 0.8 % (0-1); EOSINOPHILS # (AUTO) 0.1 X10'3 (0-0.9); EOSINOPHILS % (AUTO) 1.2 % (0-6); HEMATOCRIT 44.8 % (35.0-45.0); HEMOGLOBIN 14.8 g/dl (12.0-16.0); LYMPHOCYTES # (AUTO) 4.6 X10'3 (1.1-4.8); LYMPHOCYTES % (AUTO) 39.7 % (21-51); MEAN CORPUSCULAR HGB CONC 33.1 g/dL (33.0-36.5); MEAN CORPUSCULAR VOLUME 93.9 FL (78-98); MONOCYTES # (AUTO) 0.5 X10'3 (0-0.9); MONOCYTES % (AUTO) 4.7 % (2-12); NEUTROPHILS # (AUTO) 6.2 X10'3 (1.8-7.7); NEUTROPHILS % (AUTO) 53.6 % (42-75); PLATELET COUNT 354 X10'3 (140-440); RED BLOOD COUNT 4.78 X10'6 (4.20-5.60); RED CELL DISTRIBUTION WIDTH 14.6 % (11.5-14.5); WHITE BLOOD COUNT 11.6 X10'3 (4.5-11.0)
[2023-04-03 14:11] VITALS: BP 117/74
[2023-04-03 14:23] LABS: ALANINE AMINOTRANSFERASE 23 U/L (12-78); ALBUMIN 3.2 G/DL (3.4-5.0); ALBUMIN/GLOBULIN RATIO 0.9 (1.1-1.5); ALKALINE PHOSPHATASE 91 IU/L (46-116); ANION GAP 12 (8-16); ASPARTATE AMINO TRANSFERASE 17 U/L (10-37); BILIRUBIN,TOTAL 0.3 MG/DL (0.1-1.0); BLOOD UREA NITROGEN 17 MG/DL (7-18); BUN/CREATININE RATIO 14.5 (10.0-20.0); CALCIUM 9.5 MG/DL (8.5-10.1); CHLORIDE 108 MMOL/L (99-107); CREATININE 1.17 MG/DL (0.40-0.90); GLUCOSE 126 MG/DL (70-104); POTASSIUM 3.6 MMOL/L (3.5-5.1); SODIUM 142 MMOL/L (135-145); TOTAL CARBON DIOXIDE 22.2 MMOL/L (24-32); TOTAL PROTEIN 6.9 G/DL (6.4-8.2); eGFR 46 ML/MIN
== END 2023-04-03 19:19 | disposition left against medical advice (07) ==
LOC: ER 13:41
DX: R06.02 Shortness of breath (principal); Z53.21 Procedure and treatment not carried out due to patient leaving prior to being seen by health care provider
CPT/HCPCS: 36415; 80053; 83880; 84484; 85025; 93005; 99281

== ENCOUNTER 2024-10-14 18:38 | Emergency (ER) | payer MEDICARE, MEDICAID ==
[~2024-10-14] VITALS: Ht 167.6 cm; Wt 68.3 kg
[2024-10-14] MEDS: meclizine 12.5mg tablet PO ONE (21:22)
[2024-10-14 22:03] VITALS: BP 116/71; PULSE 78; RESP 16; TEMP 98.8; O2SAT 97
== END 2024-10-14 22:05 | disposition home or self-care (01) ==
LOC: ER 18:39
DX: B34.9 Viral infection, unspecified (principal); I25.10 Atherosclerotic heart disease of native coronary artery without angina pectoris; E78.00 Pure hypercholesterolemia, unspecified; J44.9 Chronic obstructive pulmonary disease, unspecified; I25.2 Old myocardial infarction; G89.29 Other chronic pain; E07.9 Disorder of thyroid, unspecified; Z87.442 Personal history of urinary calculi; Z95.1 Presence of aortocoronary bypass graft; Z91.018 Allergy to other foods; Z79.82 Long term (current) use of aspirin; Z79.899 Other long term (current) drug therapy
CPT/HCPCS: 99283; J8597